=== PATIENT | female | born 1995 | race Two or more races ===

== ENCOUNTER 2018-08-20 12:09 | Emergency (ER) | payer OTHER ==
[~2018-08-20] VITALS: Ht 149.9 cm; Wt 72.6 kg
[2018-08-20 12:14] VITALS: BP 119/66
== END 2018-08-20 15:06 | disposition home or self-care (01) ==
LOC: ER 12:09
DX: L02.31 Cutaneous abscess of buttock (principal); Z88.0 Allergy status to penicillin